=== PATIENT | female | born 1945 | race Caucasian/White ===

== ENCOUNTER 2017-07-18 18:49 | Inpatient (IN) | payer OTHER, BC ==
[2017-07-18] MEDS ORDERED: NS 1,000 ML IV ONE (19:08)
--- NOTE | 2017-07-18 19:09 | EDPHY ---
H & P Stated Complaint: "I think I have a bowel obstruction";had diarrhea last evening Time Seen by Provider: 07/18/17 19:08 - Personal History Current Tetanus Diphtheria and Acellular Pertussis (TDAP): Yes - Medical/Surgical History Hx Asthma: No Hx Chronic Respiratory Disease: No Hx Diabetes: No Hx Cardiac Disease: No Hx Renal Disease: No Hx Cirrhosis: No Hx Alcoholism: No Hx HIV/AIDS: No Hx Splenectomy or Spleen Trauma: No Other PMH: Colon resection. Hysterectomy - Social History Smoking Status: Never smoked Constitutional: Initial Vital Signs Temperature (C) 36.4 C 07/18/17 18:51 Heart Rate 98 07/18/17 18:51 Respiratory Rate 18 07/18/17 18:51 Blood Pressure 121/92 H 07/18/17 18:51 O2 Sat (%) 96 07/18/17 18:51 O2 Delivery Mode Room Air Allergies/Adverse Reactions: "Strong narcotics" Allergy (Unknown, Uncoded 07/18/17 18:57) doesn't like them Home Medications: Medication Instructions Recorded Levothyroxine [Synthroid 100 mcg 100 mcg PO DAILY06 07/18/17 (*)] Lisinopril [Zestril 10 mg (*)] 10 mg PO 07/18/17 Medical Decision Making ED Course/Re-evaluation: CHIEF COMPLAINT: HISTORY OF PRESENT ILLNESS: must have 4 elements: Location, Quality, Severity , Duration, Timing, Context, Modifying Factors, Associated Signs and Symptoms REVIEW OF SYSTEMS: A 10 point review of systems was performed and is negative with the exception of the elements mentioned in the history of present illness. PHYSICAL EXAM: HR, BP, O2 Sat, RR. Temp noted General Appearance: Alert, well hydrated, appropriate, and non-toxic appearing. Head: Atraumatic without scalp tenderness or obvious injury Eyes: Pupils equal, round, reactive to light and accommodation, EOMI, no trauma , no injection. Ears: Clear bilaterally, no perforation, normal landmarks Nose: Atraumatic, no rhinorrhea, clear. Throat: There is no erythema or exudates, no lesions, normal tonsils, mucus membranes moist. Neck: Supple, 2+ carotid upstroke, nontender, no lymphadenopathy. Respiratory: No retractions, no distress, no wheezes, and no accessory muscle use. Lungs are clear to auscultation bilaterally. Cardiovascular: Regular rate and rhythm, no murmurs, rubs, or gallops. Bilateral carotid, radial, dorsalis pedis, and posterior tibial pulses intact. Good capillary refill all extremities. Gastrointestinal: Abdomen is soft, nontender, non-distended, no masses, no rebound, no guarding, no peritoneal signs. Musculoskeletal: Normal active ROM of all extremities, atraumatic. Neurological: Alert, appropriate, and interactive. The patient has normal DTRs and non-focal cranial nerves, motor, sensory, and cerebellar exam. Skin: No rashes, good turgor, no nodules on palpation. Past medical history: Past surgical history: Family history: Social history: DIAGNOSTICS/PROCEDURES/CRITICAL CARE TIME: DIFFERENTIAL DIAGNOSIS: MEDICAL DECISION MAKING: Departure - Departure Referrals: Tamy Mike MD [Primary Care Provider] - As per Instructions
--- NOTE | 2017-07-18 19:44 | EDPHY ---
H & P <Abdirahman Winter - Last Filed: 07/18/17 21:22> Stated Complaint: "I think I have a bowel obstruction";had diarrhea last evening - Personal History Current Tetanus Diphtheria and Acellular Pertussis (TDAP): Yes - Medical/Surgical History Hx Asthma: No Hx Chronic Respiratory Disease: No Hx Diabetes: No Hx Cardiac Disease: No Hx Renal Disease: No Hx Cirrhosis: No Hx Alcoholism: No Hx HIV/AIDS: No Hx Splenectomy or Spleen Trauma: No Other PMH: Colon resection. Hysterectomy - Social History Smoking Status: Never smoked <Julianne Pathak - Last Filed: 07/20/17 08:56> Time Seen by Provider: 07/18/17 19:08 HPI/ROS: CHIEF COMPLAINT: "I think I have a bowel obstruction" HISTORY OF PRESENT ILLNESS: 72-year-old female with a history of small-bowel obstruction and prior partial bowel resection present with progressively worsening abdominal pain. Onset of generalized abdominal pain last evening. The pain was initially mild and associated with loose bowel movements. This morning the pain worsened and is current located in a band across her lower abdomen radiating to her back. The pain is aggravated with any movement or even sitting in the car on the ride here. She has associated nausea without vomiting. She has not had a bowel movement today and passed gas only once early in the day. She did eat a light lunch. No fever. Similar to prior episodes of small-bowel obstruction. REVIEW OF SYSTEMS: Constitutional: No fever, no chills Eyes: No visual changes ENT: No sore throat Respiratory: No cough, no shortness of breath Cardiac: No chest pain Gastrointestinal: see HPI Genitourinary: No hematuria, no dysuria Musculoskeletal: No leg pain or swelling Skin: No rash Neurological: No headache, no numbness, no weakness Psychiatric: No depression (Julianne Pathak) - Medical/Surgical History PMH: PMH includes: 1. Two prior bowel obstructions, most recent in [address] Stevens resolved without surgery. 2. Partial colon resection due to benign endometrial mass 3. Appendicitis with peritonitis leading to appendectomy and multiple adhesions 4. Lysis of adhesions 5. Hysterectomy Prior medical records reviewed including admission 10/26/13 for small bowel obstruction. (Julianne Pathak) - Social History Additional Social History: Nonsmoker. at bedside. Lives in [place]. Retired. (Julianne Pathak) - Physical Exam Exam: General Appearance: Alert, appears uncomfortable Eyes: Pupils equal and round, no conjunctival pallor or injection ENT, Mouth: Mucous membranes moist Neck: Normal inspection Respiratory: Lungs are clear to auscultation Cardiovascular: Regular rate and rhythm Gastrointestinal: Abdomen is soft, mildly distended, diffusely tender, hypoactive bowel movements Neurological: A&O, nonfocal exam Skin: Warm and dry, no rash Extremities: Normal inspection Psychiatric: Mood and affect normal (Julianne Pathak) Constitutional: Initial Vital Signs Temperature (C) 36.4 C 07/18/17 18:51 Heart Rate 98 07/18/17 18:51 Respiratory Rate 18 07/18/17 18:51 Blood Pressure 121/92 H 07/18/17 18:51 O2 Sat (%) 96 07/18/17 18:51 O2 Delivery Mode Room Air O2 (L/minute) 1 Allergies/Adverse Reactions: "Strong narcotics" Allergy (Unknown, Uncoded 07/18/17 18:57) doesn't like them Home Medications: Medication Instructions Recorded Calcium Citrate [Citracal] 200 mg PO DAILY 07/18/17 Ibuprofen [Motrin (*)] 200 mg PO DAILY PRN 07/18/17 Levothyroxine [Synthroid 50 mcg 50 mcg PO DAILY@02 07/18/17 (*)] Lisinopril [Zestril 10 mg (*)] 10 mg PO DAILY 07/18/17 Medical Decision Making - Diagnostics Imaging: Discussed imaging studies w/ call center support representative Radiologist, I viewed and interpreted images myself <Abdirahman Winter - Last Filed: 07/18/17 21:22> <Julianne Pathak - Last Filed: 07/20/17 08:56> ED Course/Re-evaluation: This is a pleasant 72 y/o female with prior history of small bowel obstructions and partial colon resection who presents with a 1-day history of progressively worsening lower abdominal pain and nausea. Concern for recurrent bowel obstruction. Plan for IV, labs, abdominal CT, and pain management. Anticipate admission. 1L IV NS, 6mg IV morphine, and 4mg IV Zofran administered. Patient signed out to Dr. Winter pending CT. (Julianne Pathak) Differential Diagnosis: Differential diagnosis includes though it is not limited to appendicitis, cholecystitis, diverticulitis, pyelonephritis, bowel perforation. (Julianne Pathak) Other Provider: [id number]: Spoke with Dr. Allen, radiologist, he reports the patient has a partial small bowel obstruction. General surgeon will be consulted. [id number]: Consulted with Dr. Stevens, general surgeon, regarding this patient. She accepts admission of this patient. (Abdirahman Winter) - Data Points Laboratory Results: Laboratory Results 07/19/17 05:11 07/19/17 05:11 Medications Given: Acetaminophen (Tylenol) 650 mg PO Q6 PRN PRN Reason: Pain, Mild/Fever, Can Take PO Stop: 01/15/18 08:36 Last Admin: 07/20/17 01:06 Dose: 650 mg Potassium Chloride/Dextrose/Sod Cl (D5w 1/2 Ns W/ 20 Kcl/L) 1,000 mls @ 100 mls /hr IV CONT [facility] Stop: 01/14/18 21:29 Last Admin: 07/18/17 23:16 Dose: 1,000 mls Levothyroxine Sodium (Synthroid) 50 mcg PO DAILY@02 [facility] Stop: 01/15/18 01:59 Last Admin: 07/20/17 01:03 Dose: 50 mcg Lisinopril (Zestril) 10 mg PO DAILY [facility] Stop: 01/15/18 08:59 Last Admin: 07/19/17 08:41 Dose: 10 mg Morphine Sulfate (Morphine) 2 mg IVP Q1HR PRN PRN Reason: Pain, Severe Unable to Take PO Stop: 07/28/17 21:23 Last Admin: 07/19/17 01:36 Dose: 2 mg Polyethylene Glycol (Miralax) 17 gm PO DAILY PRN; Protocol PRN Reason: Constipation, patient prefers Stop: 01/15/18 17:36 Last Admin: 07/19/17 20:19 Dose: 17 gm Senna/Docusate Sodium (Senokot-S) 1 - 2 tab PO BID [facility] PRN Reason: Protocol Stop: 01/15/18 20:59 Last Admin: 07/19/17 20:18 Dose: 2 tab Discontinued Medications Sodium Chloride (Ns) 1,000 mls @ 0 mls/hr IV EDNOW ONE; Wide Open PRN Reason: Protocol Stop: 07/18/17 19:09 Last Admin: 07/18/17 19:39 Dose: 1,000 mls Morphine Sulfate (Morphine) 6 mg IVP EDNOW ONE Stop: 07/18/17 19:49 Last Admin: 07/18/17 20:00 Dose: 6 mg Ondansetron HCl (Zofran) 4 mg IVP EDNOW ONE Stop: 07/18/17 19:49 Last Admin: 07/18/17 20:00 Dose: 4 mg Departure <Abdirahman Winter - Last Filed: 07/18/17 21:22> <Julianne Pathak - Last Filed: 07/20/17 08:56> - Departure Disposition: [facility] Inpatient Acute Clinical Impression: Partial small bowel obstruction Condition: Good <Abdirahman Winter - Last Filed: 07/18/17 21:22> Report Scribed for: Julianne Pathak Report Scribed by: Shruthi Nichole Date of Report: 07/18/17 Time of Report: 19:44 <Julianne Pathak - Last Filed: 07/20/17 08:56> Physician Review and Approval Statement: 07/18/17 19:44 Portions of this note were transcribed by a pediatric medical assistant. I personally performed a history, physical exam, medical decision making, and confirmed accuracy of information the transcribed note. (Julianne Pathak)
[2017-07-18] MEDS ORDERED: ONDANSETRON 4 MG/2 ML VIAL IVP ONE (19:48)
[2017-07-18] MEDS ORDERED: IOPAMIDOL (ISOVUE-300) 100 ML BTL ONE (19:56)
[2017-07-18 20:03] LABS: PLATELET COUNT 327 10^3/uL (150-400)
[2017-07-18] MEDS ORDERED: ONDANSETRON 4 MG/2 ML VIAL IVP PRN (21:24)
[2017-07-18] MEDS ORDERED: D5W 1/2 NS W/ 20 KCl/L 1,000 ML IV SCH (21:30)
--- NOTE | 2017-07-18 22:31 | GHP ---
[f rep st] HISTORY AND PHYSICAL DATE OF ADMISSION: 07/18/2017 CHIEF COMPLAINT: Small bowel obstruction. HISTORY OF PRESENT ILLNESS: The patient is a 72-year-old woman whom I first met in 2013 due to a sma ll bowel obstruction. She has been doing well over the years. She had so much loose stool and diarr hea yesterday she said she could "have a colonoscopy today." Today she felt bloated, abdominal diste ntion, and no output. Her pain escalated over the afternoon and so she presented to the emergency ro om. In the emergency room, she had an abdominal CT obtained which showed distal small bowel obstruct ion in a similar location as 2014. Since receiving morphine, she has improved. PAST MEDICAL HISTORY: Hypertension, hyperlipidemia. PAST SURGICAL HISTORY: Colon resection for benign reasons, hysterectomy, appendectomy, lysis of adhe sions. MEDICATIONS: Levothyroxine 50 mcg, lisinopril 10 mg daily, Citracal, stool softener, Advil p.r.n. ALLERGIES: No known drug allergies. 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 She moved to [place] from [facility]. She denies tobacco or alcohol use. FAMILY HISTORY: Coronary artery disease, hypertension. REVIEW OF SYSTEMS: 10-point Review of Systems negative except per HPI. PHYSICAL EXAMINATION: VITALS: 37.1, 74, 114/79, 18, 96%. GENERAL: Pleasant, well-nourished, well- groomed woman, sitting in bed, at bedside. HEENT: Normocephalic. No gross hearing deficits . Pupils equal and round. No scleral icterus. LUNGS: Clear to auscultation bilaterally. No incre ased work of breathing. CARDIAC: Regular rate. No peripheral edema. ABDOMEN: Bowel sounds presen t. Soft, distended. Surgical incisions noted. MUSCULOSKELETAL: Normal nails. PSYCH: Mood and aff ect normal. NEURO: Grossly intact. RESULTS REVIEW: Her CT scan shows distal bowel obstruction. Her white count is slightly elevated. IMPRESSION AND PLAN: The patient is a 72-year-old woman with a partial small bowel obstruction. We discussed adhesions at her request. I am hopeful that she will resolve without operative interventio n. I do not think she needs a nasogastric tube at this time, as she is not having any emesis. This could also be a gastrointestinal virus. We discussed lysis of adhesions, since the obstruction is in a similar placement as it was in 2014, but I also explained that she has gone since 2014 without hav ing admission. We will continue to follow her. Nasogastric tube if she starts to have emesis. /[id number]/MODL
[2017-07-19] MEDS: LEVOTHYROXINE 50 MCG TAB PO SCH (01:08)
[2017-07-19 05:34] LABS: PLATELET COUNT 244 10^3/uL (150-400)
[2017-07-19] MEDS: LISINOPRIL 10 MG TAB PO SCH (08:41)
[2017-07-19] MEDS: ACETAMINOPHEN 325 MG TAB PO PRN ×2 (08:42→14:59)
--- NOTE | 2017-07-19 11:26 | SOAPPROG ---
SOAP Progress Note Assessment/Plan: Assessment: 72yo F admitted with recurrent SBO Pain resolved this morning No nausea Passing minimal flatus Advance diet to clear liquids Dispo: awaiting return of bowel function and tolerating diet. Likely home in 1- 2 days S: feeling MUCH better this morning. Pain from last night is completely resolved. She is not having any nausea. Passing minimal flatus. No BM since admission O: laying in bed, comfortable, NAD No increased WOB Hypoactive bowel sounds, abd soft, minimally distended, minimally tender suprapubic Objective: Vital Signs Temp Pulse Resp BP Pulse Ox 36.6 C 66 14 109/74 95 07/19/17 07:26 07/19/17 07:26 07/19/17 07:26 07/19/17 08:41 07/19/17 07:26 Laboratory Results 07/19/17 05:11 07/19/17 05:11 07/18/17 07/19/17 07/20/17 05:59 05:59 05:59 Intake Total 1000 Balance 1000 ICD10 Worksheet Patient Problems: Problems Problem Status Onset Partial small bowel obstruction Acute Small bowel obstruction Acute
--- NOTE | 2017-07-19 11:53 | SOAPPROG ---
SOAP Progress Note Assessment/Plan: Assessment: 72-year-old female admitted with possible small mole bowel obstruction, recurrent Abdomen soft, slightly distended, with decreased bowel sounds. No flatus or BM but no vomiting Patient has had multiple abdominal incisions and surgeries CT last night suggest constipation as well as possible SBO Plan: Check 2 way/trial of clear liquids 07/19/17 11:51 Objective: Vital Signs Temp Pulse Resp BP Pulse Ox 36.6 C 66 14 109/74 95 07/19/17 07:26 07/19/17 07:26 07/19/17 07:26 07/19/17 08:41 07/19/17 07:26 Laboratory Results 07/19/17 05:11 07/19/17 05:11 07/18/17 07/19/17 07/20/17 05:59 05:59 05:59 Intake Total 1000 Balance 1000 ICD10 Worksheet Patient Problems: Problems Problem Status Onset Partial small bowel obstruction Acute Small bowel obstruction Acute
--- NOTE | 2017-07-19 16:20 | ASMTCMCOM ---
CM Note CM Note Notes: Anticipate dc home with support of spouse when medically stable. CM available if needs/changes. Date Signed: 07/19/2017 04:20 PM Electronically Signed By:Maddy De Los Santos RN
[2017-07-19] MEDS ORDERED: IBUPROFEN 600 MG TAB PO PRN (17:12)
[2017-07-19] MEDS ORDERED: LACTULOSE 20 GM/30 ML UDCUP PO PRN (17:37)
[2017-07-19] MEDS ORDERED: MAGNESIUM HYDROXIDE 30 ML UDCUP PO PRN (17:37)
[2017-07-19] MEDS ORDERED: BISACODYL 10 MG SUPP PR PRN (17:37)
[2017-07-19] MEDS ORDERED: POLYETHYLENE GLYCOL 3350 17 GM PKT PO PRN (17:37)
[2017-07-19] MEDS: SENNOSIDES/DOCUSATE SODIUM TAB PO SCH (20:18)
[2017-07-20] MEDS: LEVOTHYROXINE 50 MCG TAB PO SCH (01:03)
[2017-07-20] MEDS: ACETAMINOPHEN 325 MG TAB PO PRN (01:06)
[2017-07-20 08:05] VITALS: BP 120/74; PULSE 78; RESP 18; TEMP 98; O2SAT 96
[2017-07-20] MEDS: LISINOPRIL 10 MG TAB PO SCH (09:09)
[2017-07-20] MEDS: SENNOSIDES/DOCUSATE SODIUM TAB PO SCH (09:09)
--- NOTE | 2017-07-20 11:32 | SOAPPROG ---
SOAP Progress Note Assessment/Plan: Assessment: 72-year-old female admitted with possible small mole bowel obstruction, recurrent Abdomen soft, slightly distended, with decreased bowel sounds. No flatus or BM but no vomiting Patient has had multiple abdominal incisions and surgeries CT last night suggest constipation as well as possible SBO Plan: Check 2 way/trial of clear liquids 07/19/17 11:51 07/20/17 11:31 DOING WELL WITH NO PARTICULAR DIFFICULTIES/ABDOMEN SOFT NONTENDER WITH POSITIVE BOWEL SOUNDS/POSITIVE BMS EATING WELL/AFEBRILE/ PLAN: HOME, FOLLOW-UP IN THE OFFICE IN 2 WEEKS OR SOONER IF SYMPTOMS RECUR/RISKS AND OPTIONS FULLY DISCUSSED Objective: Vital Signs Temp Pulse Resp BP Pulse Ox 36.7 C 78 18 120/74 96 07/20/17 08:00 07/20/17 08:00 07/20/17 08:00 07/20/17 08:00 07/20/17 08:00 07/19/17 07/20/17 07/21/17 05:59 05:59 05:59 Intake Total 500 Balance 500 ICD10 Worksheet Patient Problems: Problems Problem Status Onset Partial small bowel obstruction Acute Small bowel obstruction Acute
--- NOTE | 2017-07-20 15:37 | ASDISCHSUM ---
Discharge Information Plan Status:Home with No Needs Medically Cleared to Leave: Discharge Date:07/20/2017 11:42 AM CM D/C Disposition:Home, Routine, Self-Care ADT D/C Disposition:Home, Routine, Self-Care Projected Discharge Date:07/20/2017 11:42 AM Transportation at D/C:Family Discharge Delay Reason: Follow-Up Date:07/20/2017 11:42 AM Discharge Slot: Final Diagnosis: Placement Information Patient Contact Information Contact Name:FIDENCIO Relationship: Address:[address] [place]:[facility] Phone: [facility]/Zip Code:[place] [address] Email: Financial Information Financial Class: Primary Plan Desc:MEDICARE INPATIENT Primary Plan Number:[id number] Secondary Plan Desc: OUT OF STATE [facility] Secondary Plan Number:[id number] Assessment Information [facility] CM Progress Note CM Note CM Note Notes: Anticipate dc home with support of spouse when medically stable. CM available if needs/changes. Date Signed: 07/19/2017 04:20 PM Electronically Signed By:Maddy De Los Santos RN Intervention Information Intervention Type:*TREVINO-Signed Date of Service:07/19/2017 10:17 AM Patient Type:Observation Staff Member:Ayah Quispe Hours: Discipline: Severity: Comment: Intervention Type:*Occurence 71 Date of Service:07/20/2017 02:06 PM Patient Type:Inpatient Staff Member:MAGAN Webb Susan Hours: Discipline: Severity: Comment:
== END 2017-07-20 11:42 | disposition home or self-care (01) | DRG 390 ==
LOC: F3E 22:14 → OBSVTOIN 07-19 14:20
PROVIDERS: ADMIT Surgery; ATTEND Surgery
DX: K56.600 Partial intestinal obstruction, unspecified as to cause (principal); I10 Essential (primary) hypertension; E78.5 Hyperlipidemia, unspecified
CPT/HCPCS: 82947-QW; 96374; G0378; J2405; Q9967

== ENCOUNTER → 2017-12-29 | Outpatient (CLI) | payer OTHER, BC | LOC: BMCIMAGING 09:23 | PROVIDERS: ATTEND Physician Assistant | DX: K59.00 Constipation, unspecified (principal) ==

== ENCOUNTER → 2018-12-11 | Outpatient (CLI) | payer OTHER, BC | LOC: FIMAGING 10:17 ==